=== PATIENT | female | born 2000 | race Caucasian/White ===

== ENCOUNTER 2024-03-26 16:10 | Emergency (ER) | payer OTHER | END 2024-03-26 16:50 | disposition left against medical advice (07) | LOC: ER 16:12 | DX: F10.90 Alcohol use, unspecified, uncomplicated (principal); Z53.21 Procedure and treatment not carried out due to patient leaving prior to being seen by health care provider ==

== ENCOUNTER 2024-07-14 11:52 | Emergency (ER) | payer BC ==
[~2024-07-14] VITALS: Ht 172.7 cm; Wt 68.2 kg
[2024-07-14 13:08] LABS: BASOPHILS % (AUTO) 1.1 % (0-1); EOSINOPHILS % (AUTO) 0.9 % (0-6); HEMATOCRIT 39.1 % (35.0-45.0); HEMOGLOBIN 13.5 g/dl (12.0-16.0); LYMPHOCYTES # (AUTO) 1.6 X10'3 (1.1-4.8); LYMPHOCYTES % (AUTO) 44.8 % (21-51); MEAN CORPUSCULAR HEMOGLOBIN 36.6 PG (27.0-31.0); MEAN CORPUSCULAR HGB CONC 34.5 g/dL (33.0-36.5); MEAN CORPUSCULAR VOLUME 105.9 FL (78-98); MEAN PLATELET VOLUME 7.6 FL (7.4-10.4); MONOCYTES # (AUTO) 0.2 X10'3 (0-0.9); NEUTROPHILS # (AUTO) 1.7 X10'3 (1.8-7.7); NEUTROPHILS % (AUTO) 47.2 % (42-75); PLATELET COUNT 156 X10'3 (140-440); RED BLOOD COUNT 3.69 X10'6 (4.20-5.60); RED CELL DISTRIBUTION WIDTH 14.5 % (11.5-14.5); WHITE BLOOD COUNT 3.7 X10'3 (4.5-11.0)
[2024-07-14 13:11] LABS: ALANINE AMINOTRANSFERASE 386 U/L (12-78); ALBUMIN/GLOBULIN RATIO 1.1 (1.1-1.5); ALKALINE PHOSPHATASE 93 IU/L (46-116); ANION GAP 11 (8-16); ASPARTATE AMINO TRANSFERASE 497 U/L (10-37); BILIRUBIN,TOTAL 0.5 MG/DL (0.1-1.0); BLOOD UREA NITROGEN 7 MG/DL (7-18); BUN/CREATININE RATIO 9.1 (10.0-20.0); CALCIUM 8.6 MG/DL (8.5-10.1); CHLORIDE 102 MMOL/L (99-107); CREATININE 0.77 MG/DL (0.40-0.90); GLUCOSE 99 MG/DL (70-104); LIPASE 60 U/L (16-77); POTASSIUM 3.7 MMOL/L (3.5-5.1); SODIUM 142 MMOL/L (135-145); TOTAL CARBON DIOXIDE 29.4 MMOL/L (24-32); TOTAL PROTEIN 7.5 G/DL (6.4-8.2); eGFR > 90 ML/MIN
[2024-07-14 14:16] VITALS: TEMP 98.5
[2024-07-14 15:12] LABS: BILIRUBIN,URINE NEGATIVE (Neg); CLARITY,URINE SLIGHTLY CLOUDY (Clear); COLOR,URINE YELLOW (Yellow); GLUCOSE, URINE NEGATIVE (Neg); KETONES,URINE TRACE mg/dl (Neg); LEUKOCYTE ESTERASE ,URINE NEGATIVE (Neg); NITRITES, URINE NEGATIVE (Neg); OCCULT BLOOD,URINE MODERATE (Neg); PH,URINE 6.5 (4.8-8.0); PROTEIN,URINE NEGATIVE (Neg); UROBILINOGEN,URINE 0.2 E.U/dL (0.2-1.0)
[2024-07-14 15:13] LABS: URINE HCG NEGATIVE (NEG)
[2024-07-14 15:15] LABS: UA COLLECTION TYPE CLN CATCH MIDSTREAM
[2024-07-14 15:20] LABS: MUCUS STRANDS MANY /LPF (Neg); SQUAMOUS EPITHELIAL CELL,UR MANY /LPF (FEW)
[2024-07-14 15:22] LABS: BACTERIA,URINE 1+ /HPF (Neg); RBC,URINE 0-2 /HPF (0-2); WBC,URINE 0-4 /HPF (0-4)
[2024-07-14] MEDS: normal saline 1000ml 1,000 ML IV ONE (15:29)
[2024-07-14] MEDS: thiamine 100mg/ml 2ml inj. IV ONE (15:30)
[2024-07-14] MEDS: ondansetron/PF 4mg/2ml inj IV ONE (15:30)
[2024-07-14] MEDS: LORazepam 2 mg/ml vial IV ONE (15:30)
[2024-07-14 15:32] LABS: ETHANOL 399 MG/DL (<10)
[2024-07-14] MEDS ORDERED: CHLO25CA10 PO (16:46)
[2024-07-14] MEDS: chlordiazePOXIDE 25mg capsule PO ONE (16:47)
[2024-07-14 16:58] VITALS: BP 128/84; PULSE 84; RESP 16; O2SAT 98
[2024-07-15] MEDS ORDERED: CHLO25CA10 PO (23:05)
== END 2024-07-14 17:08 | disposition home or self-care (01) ==
LOC: ER 11:52
DX: F10.239 Alcohol dependence with withdrawal, unspecified (principal); F10.229 Alcohol dependence with intoxication, unspecified
CPT/HCPCS: 36415; 80053; 80320; 81001; 81025; 83690; 85025; 96361; 96374; 96375; 99284; J2060; J2405; J3411; J7030

== ENCOUNTER 2024-07-15 20:18 | Inpatient (IN) | payer BC ==
[~2024-07-15] VITALS: Ht 172.7 cm; Wt 68.5 kg
[~2024-07-15 20:18] MED LIST: CHLO25CA10 PO
[2024-07-15 21:42] LABS: EOSINOPHILS % (AUTO) 0.5 % (0-6); HEMATOCRIT 34.7 % (35.0-45.0); HEMOGLOBIN 12.1 g/dl (12.0-16.0); LYMPHOCYTES # (AUTO) 1.5 X10'3 (1.1-4.8); LYMPHOCYTES % (AUTO) 46.9 % (21-51); MEAN CORPUSCULAR HEMOGLOBIN 36.3 PG (27.0-31.0); MEAN CORPUSCULAR HGB CONC 34.8 g/dL (33.0-36.5); MEAN CORPUSCULAR VOLUME 104.4 FL (78-98); MONOCYTES # (AUTO) 0.3 X10'3 (0-0.9); MONOCYTES % (AUTO) 8.3 % (2-12); NEUTROPHILS # (AUTO) 1.4 X10'3 (1.8-7.7); NEUTROPHILS % (AUTO) 43.3 % (42-75); PLATELET COUNT 141 X10'3 (140-440); RED BLOOD COUNT 3.33 X10'6 (4.20-5.60); RED CELL DISTRIBUTION WIDTH 14.2 % (11.5-14.5); WHITE BLOOD COUNT 3.3 X10'3 (4.5-11.0)
[2024-07-15] MEDS: normal saline 1000ml 1,000 ML IV ONE (22:19)
[2024-07-15 22:21] LABS: ALANINE AMINOTRANSFERASE 239 U/L (12-78); ALBUMIN 3.7 G/DL (3.4-5.0); ALBUMIN/GLOBULIN RATIO 1.2 (1.1-1.5); ALKALINE PHOSPHATASE 82 IU/L (46-116); ANION GAP 14 (8-16); ASPARTATE AMINO TRANSFERASE 248 U/L (10-37); BILIRUBIN,TOTAL 0.5 MG/DL (0.1-1.0); BLOOD UREA NITROGEN 8 MG/DL (7-18); BUN/CREATININE RATIO 10.1 (10.0-20.0); CALCIUM 7.9 MG/DL (8.5-10.1); CHLORIDE 101 MMOL/L (99-107); CREATININE 0.79 MG/DL (0.40-0.90); GLUCOSE 84 MG/DL (70-104); POTASSIUM 3.3 MMOL/L (3.5-5.1); SODIUM 140 MMOL/L (135-145); TOTAL PROTEIN 6.9 G/DL (6.4-8.2); eCRCL 110 ML/MIN; eGFR 89 ML/MIN
[2024-07-15 22:27] LABS: MAGNESIUM 1.8 MG/DL (1.5-2.4); SALICYLATE 1.1 MG/DL (4.0-20.0)
[2024-07-15] MEDS: phenoBARBITAL sod 130mg/ml inj. IV ONE (22:36)
[2024-07-15 22:38] LABS: BETA HCG,QUANTITATIVE < 1.0 mIU/ml; ETHANOL 396 MG/DL (<10)
[2024-07-15 22:44] LABS: ACETAMINOPHEN < 2.0 UG/ML (10-30)
[2024-07-15] MEDS: normal saline 1000ml 1,000 ML IV SCH (23:03)
[2024-07-15] MEDS ORDERED: CHLO25CA10 PO (23:05)
[2024-07-16] MEDS ORDERED: magnesium hydroxide 30ml (MOM) UD suspension PO PRN (00:10)
[2024-07-16] MEDS ORDERED: magnesium sulf-water 2g/50mL 50 ML IV PRN (00:10)
[2024-07-16] MEDS ORDERED: potassium Cl 20 mEq SR tablet PO PRN (00:10)
[2024-07-16] MEDS ORDERED: magnesium Cl slow-release 64mg tablet PO PRN (00:10)
[2024-07-16] MEDS ORDERED: potassium Cl 40MEQ/1/2NS 520ml 520 ML IV PRN (00:10)
[2024-07-16] MEDS ORDERED: mag hydrox/Alum hydrox/simeth 30ml oral suspension PO PRN (00:10)
[2024-07-16] MEDS: normal saline 1000ml 1,000 ML IV SCH (00:10)
[2024-07-16] MEDS ORDERED: magnesium sulf-water 4G/100mL 100 ML IV PRN (00:10)
[2024-07-16] MEDS ORDERED: haloperidol lactate 5mg/ml inj IM PRN (00:15)
[2024-07-16] MEDS ORDERED: DEXTROSE 15 GM of carb/4 tabs (each vial/BOTTLE has 4 tablets) PO PRN ×2 (00:20)
[2024-07-16] MEDS ORDERED: glucagon, human recombinant 1mg kit SUBCUT PRN (00:20)
[2024-07-16] MEDS ORDERED: dextrose 50%-water 50ml dispensing syringe IV PRN ×2 (00:20)
[2024-07-16 00:36] LABS: BILIRUBIN,URINE NEGATIVE (Neg); CLARITY,URINE CLEAR (Clear); COLOR,URINE YELLOW (Yellow); GLUCOSE, URINE NEGATIVE (Neg); KETONES,URINE 15 mg/dl (Neg); LEUKOCYTE ESTERASE ,URINE NEGATIVE (Neg); NITRITES, URINE NEGATIVE (Neg); OCCULT BLOOD,URINE SMALL (Neg); PROTEIN,URINE NEGATIVE (Neg); UROBILINOGEN,URINE 0.2 E.U/dL (0.2-1.0)
[2024-07-16 00:37] LABS: UA COLLECTION TYPE CLN CATCH MIDSTREAM
[2024-07-16 00:43] LABS: SQUAMOUS EPITHELIAL CELL,UR MANY /LPF (FEW)
[2024-07-16 00:44] LABS: BACTERIA,URINE 4+ /HPF (Neg); RBC,URINE 0-2 /HPF (0-2)
[2024-07-16] MEDS: LORazepam 2 mg/ml vial IV PRN ×2 (00:44→07:22)
[2024-07-16] MEDS: K and/or MAG REPLACEMENT MC SCH (07:15)
[2024-07-16] MEDS: thiamine 100mg/ml 2ml inj. IV SCH (07:16)
[2024-07-16] MEDS: docusate sod 100mg capsule PO SCH (07:17)
[2024-07-16] MEDS: multivitamins, therapeutics tablet PO SCH (07:17)
[2024-07-16] MEDS: folic acid 1mg/0.2ml inj IV SCH (07:17)
[2024-07-16] MEDS: potassium Cl 20 mEq SR tablet PO PRN (07:17)
[2024-07-16 08:35] LABS: MAGNESIUM 1.7 MG/DL (1.5-2.4); POTASSIUM 3.3 MMOL/L (3.5-5.1); THYROID STIMULATING HORMONE 1.02 ulU/ml (0.34-4.50)
[2024-07-16 09:04] LABS: HEMOGLOBIN A1C 4.4 % (4.5-6.2)
[2024-07-16 12:57] LABS: CHOL/HDL RATIO 1.8 (0.00-4.99); CHOLESTEROL 190 MG/DL (0-200); HDL CHOLESTEROL 105 MG/DL (35-60); LDL CHOLESTEROL 62 MG/DL (50-100); TRIGLYCERIDES 81 MG/DL (20-135)
[2024-07-16] MEDS: FLU VACC TS2024-25(6MOS UP)/PF 45 MCG/0.5 ML SYRINGE IMVAC ONE (16:59)
[2024-07-16 18:00] VITALS: BP 134/97; PULSE 96; RESP 16; TEMP 97.5; O2SAT 99
[2024-07-16 22:00] VITALS: BP 115/77; PULSE 77; RESP 18; TEMP 98.1; O2SAT 97
[2024-07-17 06:00] VITALS: BP 116/86; PULSE 63; RESP 16; TEMP 97.9; O2SAT 100
[2024-07-17 06:30] LABS: BASOPHILS % (AUTO) 0.6 % (0-1); EOSINOPHILS % (AUTO) 1.1 % (0-6); HEMATOCRIT 31.1 % (35.0-45.0); HEMOGLOBIN 10.8 g/dl (12.0-16.0); LYMPHOCYTES # (AUTO) 0.7 X10'3 (1.1-4.8); LYMPHOCYTES % (AUTO) 26.3 % (21-51); MEAN CORPUSCULAR HEMOGLOBIN 36.3 PG (27.0-31.0); MEAN CORPUSCULAR HGB CONC 34.8 g/dL (33.0-36.5); MEAN CORPUSCULAR VOLUME 104.3 FL (78-98); MEAN PLATELET VOLUME 7.6 FL (7.4-10.4); MONOCYTES # (AUTO) 0.3 X10'3 (0-0.9); MONOCYTES % (AUTO) 12.1 % (2-12); NEUTROPHILS # (AUTO) 1.6 X10'3 (1.8-7.7); NEUTROPHILS % (AUTO) 59.9 % (42-75); PLATELET COUNT 112 X10'3 (140-440); RED BLOOD COUNT 2.98 X10'6 (4.20-5.60); RED CELL DISTRIBUTION WIDTH 14.2 % (11.5-14.5); WHITE BLOOD COUNT 2.7 X10'3 (4.5-11.0)
[2024-07-17 06:52] LABS: APTT 25 SECONDS (22-32); INR 1.1 INR; PROTHROMBIN TIME 11.4 SECONDS (9.0-12.0)
[2024-07-17 07:11] LABS: ALANINE AMINOTRANSFERASE 149 U/L (12-78); ALBUMIN/GLOBULIN RATIO 1.2 (1.1-1.5); ALKALINE PHOSPHATASE 71 IU/L (46-116); AMYLASE 50 U/L (25-115); ANION GAP 8 (8-16); ASPARTATE AMINO TRANSFERASE 124 U/L (10-37); BILIRUBIN,TOTAL 1.1 MG/DL (0.1-1.0); BLOOD UREA NITROGEN 6 MG/DL (7-18); BUN/CREATININE RATIO 10.2 (10.0-20.0); CALCIUM 7.8 MG/DL (8.5-10.1); CHLORIDE 101 MMOL/L (99-107); CHOL/HDL RATIO 1.6 (0.00-4.99); CHOLESTEROL 170 MG/DL (0-200); CREATININE 0.59 MG/DL (0.40-0.90); GLUCOSE 98 MG/DL (70-104); HDL CHOLESTEROL 109 MG/DL (35-60); LDL CHOLESTEROL 54 MG/DL (50-100); LIPASE 154 U/L (16-77); MAGNESIUM 1.3 MG/DL (1.5-2.4); PHOSPHORUS 3.5 MG/DL (2.3-4.5); POTASSIUM 3.2 MMOL/L (3.5-5.1); SODIUM 135 MMOL/L (135-145); TOTAL CARBON DIOXIDE 26.3 MMOL/L (24-32); TOTAL PROTEIN 5.6 G/DL (6.4-8.2); TRIGLYCERIDES 33 MG/DL (20-135); eCRCL 147 ML/MIN; eGFR > 90 ML/MIN
[2024-07-17] MEDS: ondansetron/PF 4mg/2ml inj IV PRN (09:49)
[2024-07-17 10:00] VITALS: BP 141/93; PULSE 82; RESP 14; TEMP 98; O2SAT 98
[2024-07-17 10:02] LABS: PLATELET ESTIMATE DECREASED; TOTAL CELLS COUNTED 100
[2024-07-17 14:36] VITALS: RESP 14; O2SAT 98
[2024-07-17 18:00] VITALS: BP 136/87; PULSE 91; RESP 14; TEMP 97.4; O2SAT 100
[2024-07-17 22:00] VITALS: BP 107/66; PULSE 67; RESP 18; TEMP 98.3; O2SAT 99
[2024-07-18] MEDS: acetaminophen 325mg tablet PO PRN (03:11)
[2024-07-18 06:00] VITALS: BP 116/80; PULSE 69; RESP 15; TEMP 98.9; O2SAT 99
[2024-07-18 06:57] LABS: BASOPHILS % (AUTO) 0.5 % (0-1); EOSINOPHILS % (AUTO) 2.1 % (0-6); HEMATOCRIT 33.1 % (35.0-45.0); HEMOGLOBIN 11.7 g/dl (12.0-16.0); LYMPHOCYTES # (AUTO) 0.8 X10'3 (1.1-4.8); LYMPHOCYTES % (AUTO) 35.1 % (21-51); MEAN CORPUSCULAR HEMOGLOBIN 37.1 PG (27.0-31.0); MEAN CORPUSCULAR HGB CONC 35.3 g/dL (33.0-36.5); MEAN CORPUSCULAR VOLUME 105.1 FL (78-98); MEAN PLATELET VOLUME 8.5 FL (7.4-10.4); MONOCYTES # (AUTO) 0.3 X10'3 (0-0.9); NEUTROPHILS % (AUTO) 47.3 % (42-75); PLATELET COUNT 142 X10'3 (140-440); RED BLOOD COUNT 3.15 X10'6 (4.20-5.60); RED CELL DISTRIBUTION WIDTH 14.1 % (11.5-14.5); WHITE BLOOD COUNT 2.2 X10'3 (4.5-11.0)
[2024-07-18 07:05] LABS: APTT 24 SECONDS (22-32); INR 1.1 INR
[2024-07-18 07:09] LABS: ALANINE AMINOTRANSFERASE 147 U/L (12-78); ALBUMIN 3.3 G/DL (3.4-5.0); ALBUMIN/GLOBULIN RATIO 1.2 (1.1-1.5); ALKALINE PHOSPHATASE 70 IU/L (46-116); AMYLASE 66 U/L (25-115); ANION GAP 7 (8-16); ASPARTATE AMINO TRANSFERASE 111 U/L (10-37); BILIRUBIN,TOTAL 0.8 MG/DL (0.1-1.0); BLOOD UREA NITROGEN 4 MG/DL (7-18); BUN/CREATININE RATIO 6.3 (10.0-20.0); CALCIUM 8.3 MG/DL (8.5-10.1); CHLORIDE 102 MMOL/L (99-107); CREATININE 0.63 MG/DL (0.40-0.90); GLUCOSE 93 MG/DL (70-104); LIPASE 162 U/L (16-77); MAGNESIUM 1.5 MG/DL (1.5-2.4); PHOSPHORUS 4.3 MG/DL (2.3-4.5); POTASSIUM 3.2 MMOL/L (3.5-5.1); SODIUM 135 MMOL/L (135-145); TOTAL CARBON DIOXIDE 25.7 MMOL/L (24-32); TOTAL PROTEIN 6.1 G/DL (6.4-8.2); eCRCL 138 ML/MIN; eGFR > 90 ML/MIN
[2024-07-18 08:00] VITALS: RESP 16; O2SAT 99
[2024-07-18 08:20] LABS: PLATELET ESTIMATE DECREASED; TOTAL CELLS COUNTED 100
[2024-07-18 12:58] VITALS: RESP 18
[2024-07-18] MEDS: potassium Cl 20 mEq SR tablet PO ONE (13:40)
== END 2024-07-18 17:00 | disposition home or self-care (01) | DRG 641 ==
LOC: ER 20:19 → ED HOLD 23:51 → EDBEDREQTM 07-16 11:41 → EDBEDREQDT 07-16 11:41 → ORTHO 4S 07-16 12:50
PROVIDERS: ADMIT Internal Medicine Critical Care Medicine; ATTEND Family Medicine
DX: E87.6 Hypokalemia (principal); F10.239 Alcohol dependence with withdrawal, unspecified; F10.229 Alcohol dependence with intoxication, unspecified; F41.9 Anxiety disorder, unspecified; D72.819 Decreased white blood cell count, unspecified; D50.9 Iron deficiency anemia, unspecified; R74.01 Elevation of levels of liver transaminase levels; D53.9 Nutritional anemia, unspecified
CPT/HCPCS: 36415; 80053; 80061; 80320; 80329; 81001; 81003; 82150; 82607; 82948; 83036; 83690; 83735; 84100; 84132; 84443; 84702; 85007; 85025; 85610; 85730; 90686; 99285; A6258; G0378; J2060; J2405; J2560; J3411; J3490; J7030